=== PATIENT | female | born 1965 | race African-American/Black ===

== ENCOUNTER 2017-01-25 08:09 | Emergency (ER) | payer MEDICAID ==
[~2017-01-25] VITALS: Ht 167.6 cm; Wt 68.2 kg
[~2017-01-25 08:09] MED LIST: ACET-48 PO; BUPR75 PO; CARB200T6 PO; DIVA500T35 PO; IBUP-2077 PO; MECL-111 PO
[2017-01-25 08:48] LABS: BASOPHILS # (AUTO) 0.04 K/uL (0.00-0.20); BASOPHILS % (AUTO) 0.6 % (0.0-2.0); EOSINOPHILS % (AUTO) 8.67 % (1.0-6.0); HEMATOCRIT 38.6 % (36-46); LYMPHOCYTES # (AUTO) 2.3 K/uL (1.0-4.8); LYMPHOCYTES % (AUTO) 33.3 % (22.0-44.0); MEAN CORPUSCULAR HEMOGLOBIN 34.7 pg (26.0-34.0); MEAN CORPUSCULAR HGB CONC 33.6 G/dL (31.0-37.0); MEAN CORPUSCULAR VOLUME 103 fL (80-100); MONOCYTES # (AUTO) 0.6 K/uL (0.1-1.0); MONOCYTES % (AUTO) 8.2 % (2.0-9.0); NEUTROPHILS # (AUTO) 3.4 K/uL (1.8-7.7); NEUTROPHILS % (AUTO) 49.2 % (40.0-70.0); PLATELET COUNT (AUTO) 117 K/uL (150-450); RED BLOOD CELL COUNT(AUTO) 3.74 MIL/uL (4.00-5.20); RED CELL DISTRIBUTION WIDTH 15.8 % (11.5-14.5)
[2017-01-25 08:49] LABS: APPEARANCE,URINE CLOUDY (CLEAR); GLUCOSE, URINE (UA) NEGATIVE (NEGATIVE); KETONES,URINE NEGATIVE (NEGATIVE); LEUKOCYTE ESTERASE ,URINE LARGE (NEGATIVE); OCCULT BLOOD,URINE TRACE (NEGATIVE); PH,URINE 6.5 (5.0-8.0); PROTEIN,URINE NEGATIVE (NEGATIVE)
[2017-01-25 08:56] LABS: ANION GAP 5 mmol/L (8-16); CALCIUM, TOTAL 9.2 mg/dL (8.8-10.5); CARBON DIOXIDE 29 mmol/L (22-29); CHLORIDE 104 mmol/L (98-107); CREATININE 1.04 mg/dL (0.60-1.30); GLOMERULAR FILTR. RATE CALC > 60 mL/min (>60); POTASSIUM 4.8 mmol/L (3.5-5.1); SODIUM SERUM 138 mmol/L (136-145); UREA NITROGEN, BLOOD 19 mg/dL (7-18)
[2017-01-25 09:03] LABS: ALANINE AMINOTRANSFERASE 13 U/L (12-78); ALBUMIN 3.1 g/dL (3.4-5.0); ASPARTATE AMINOTRANSFERASE 14 U/L (15-37); BILIRUBIN,TOTAL 0.4 mg/dL (0.1-1.0); TOTAL PROTEIN, SERUM 7.4 g/dL (6.4-8.2); VALPROIC ACID 133 mcg/mL (50-100)
[2017-01-25 09:13] LABS: WBC,URINE 26-50 /HPF (0-5)
[2017-01-25 09:14] LABS: SQUAMOUS EPITHELIAL CELL,UR Moderate /LPF (None Seen)
[2017-01-25 10:03] LABS: RBC MORPHOLOGY COMMENT ABNORMAL RBC MORPH
[2017-01-25 12:53] VITALS: BP 115/72
== END 2017-01-25 12:55 | disposition home or self-care (01) ==
LOC: EMS 08:11 → MERGE 08:11 → EMS 12:55
DX: F20.9 Schizophrenia, unspecified (principal); N39.0 Urinary tract infection, site not specified; F22 Delusional disorders; F32.9 Major depressive disorder, single episode, unspecified; F41.9 Anxiety disorder, unspecified; Z79.82 Long term (current) use of aspirin
CPT/HCPCS: 36415; 80053; 80164; 80307; 81001; 85025; 87077; 87086; 87186; 99284; G0480

== ENCOUNTER 2017-03-02 11:49 | Inpatient (IN) | payer MEDICAID ==
[~2017-03-02] VITALS: Ht 167.6 cm; Wt 61.7 kg
[2017-03-02 13:33] LABS: BASOPHILS # (AUTO) 0.02 K/uL (0.00-0.20); BASOPHILS % (AUTO) 0.3 % (0.0-2.0); EOSINOPHILS # (AUTO) 0.27 K/uL (0.00-0.70); EOSINOPHILS % (AUTO) 3.74 % (1.0-6.0); HEMATOCRIT 37.6 % (36-46); HEMOGLOBIN 12.8 g/dL (12.0-16.0); LYMPHOCYTES # (AUTO) 1.6 K/uL (1.0-4.8); LYMPHOCYTES % (AUTO) 22.9 % (22.0-44.0); MEAN CORPUSCULAR HEMOGLOBIN 34.3 pg (26.0-34.0); MEAN CORPUSCULAR HGB CONC 34.1 G/dL (31.0-37.0); MEAN CORPUSCULAR VOLUME 101 fL (80-100); MONOCYTES # (AUTO) 0.6 K/uL (0.1-1.0); MONOCYTES % (AUTO) 8.9 % (2.0-9.0); NEUTROPHILS # (AUTO) 4.6 K/uL (1.8-7.7); NEUTROPHILS % (AUTO) 64.2 % (40.0-70.0); PLATELET COUNT (AUTO) 119 K/uL (150-450); RED BLOOD CELL COUNT(AUTO) 3.74 MIL/uL (4.00-5.20); RED CELL DISTRIBUTION WIDTH 14.7 % (11.5-14.5)
[2017-03-02 13:48] LABS: ANION GAP 8 mmol/L (8-16); CALCIUM, TOTAL 9.2 mg/dL (8.8-10.5); CARBON DIOXIDE 29 mmol/L (22-29); CHLORIDE 103 mmol/L (98-107); CREATININE 0.97 mg/dL (0.60-1.30); GLOMERULAR FILTR. RATE CALC > 60 mL/min (>60); GLUCOSE,RANDOM 77 mg/dL (70-110); POTASSIUM 3.8 mmol/L (3.5-5.1); SODIUM SERUM 140 mmol/L (136-145); UREA NITROGEN, BLOOD 19 mg/dL (7-18)
[2017-03-02 13:54] LABS: ALANINE AMINOTRANSFERASE 15 U/L (12-78); ALBUMIN 3.2 g/dL (3.4-5.0); ALKALINE PHOSPHATASE 61 U/L (46-116); ASPARTATE AMINOTRANSFERASE 18 U/L (15-37); BILIRUBIN,TOTAL 0.4 mg/dL (0.1-1.0); TOTAL PROTEIN, SERUM 7.7 g/dL (6.4-8.2)
[2017-03-02 14:26] LABS: AMPHET/METH SCREEN,URINE NEGATIVE (NEGATIVE); BARBITURATE SCREEN, URINE NEGATIVE (NEGATIVE); BENZODIAZEPINES SCREEN,URINE NEGATIVE (NEGATIVE); CANNABINOID SCREEN,URINE NEGATIVE (NEGATIVE); COCAINE SCREEN,URINE NEGATIVE (NEGATIVE); METHADONE SCREEN, URINE NEGATIVE (NEGATIVE); OPIATE SCREEN,URINE NEGATIVE (NEGATIVE)
[2017-03-02 14:29] LABS: PHENCYCLIDINE SCREEN,URINE NEGATIVE (NEGATIVE)
[2017-03-02 16:13] LABS: APPEARANCE,URINE TURBID (CLEAR); BILIRUBIN,URINE NEGATIVE (NEGATIVE); GLUCOSE, URINE (UA) NEGATIVE (NEGATIVE); KETONES,URINE 15 mg/dL (NEGATIVE); LEUKOCYTE ESTERASE ,URINE LARGE (NEGATIVE); NITRATE,URINE POSITIVE (NEGATIVE); OCCULT BLOOD,URINE SMALL (NEGATIVE); PROTEIN,URINE POS 1+ (NEGATIVE)
[2017-03-02 16:21] LABS: BACTERIA,URINE Moderate /HPF (None Seen); RBC,URINE 0-2 /HPF (0-2); SQUAMOUS EPITHELIAL CELL,UR Few /LPF (None Seen); WBC,URINE 51-100 /HPF (0-5)
[2017-03-02] MEDS ORDERED: LORazepam 2 MG TABLET PO PRN (17:00)
[2017-03-02] MEDS ORDERED: HALOPERIDOL 5 MG TABLET PO PRN (17:00)
[2017-03-02 18:16] LABS: CHOL/HDL RATIO 2.4 (3.9-5.7); CHOLESTEROL 182 mg/dL (131-200); FREE T4 (FREE THYROXINE) 1.86 ng/dL (0.76-1.46); HDL CHOLESTEROL 75 mg/dL (40-60); LDL CHOL (CALC.) 90 mg/dL (0-130); THYROID STIMULATING HORMONE 4.69 uIU/mL (0.36-3.74); TRIGLYCERIDES 83 mg/dL (15-150)
[2017-03-02] MEDS ORDERED: CIPROFLOXACIN HCL 250 MG TABLET PO ONE (19:45)
[2017-03-02] MEDS ORDERED: CIPROFLOXACIN HCL 500 MG TABLET PO ONE (19:45)
[2017-03-02 20:17] VITALS: BP 129/94
[2017-03-02] MEDS: DIVALPROEX SODIUM 500 MG DR TABLET PO SCH (23:01)
[2017-03-02] MEDS: CarBAMazepine 200 MG TABLET PO SCH (23:01)
[2017-03-03] MEDS: IBUPROFEN 800 MG TABLET PO SCH ×3 (06:41→17:18)
[2017-03-03] MEDS: MECLIZINE HCL 25 MG TABLET PO SCH ×2 (09:23→17:19)
[2017-03-03] MEDS: CarBAMazepine 200 MG TABLET PO SCH ×4 (09:23→20:45)
[2017-03-03] MEDS: DIVALPROEX SODIUM 500 MG DR TABLET PO SCH ×4 (09:23→20:45)
[2017-03-03] MEDS: ACETAMINOPHEN 500 MG TABLET PO SCH (09:24)
[2017-03-03] MEDS: CIPROFLOXACIN HCL 500 MG TABLET PO SCH ×2 (09:26→17:19)
[2017-03-03 11:16] VITALS: BP 119/70
[2017-03-03 19:02] VITALS: BP 117/69
[2017-03-04] MEDS: IBUPROFEN 800 MG TABLET PO SCH ×3 (06:36→17:39)
[2017-03-04] MEDS: ACETAMINOPHEN 500 MG TABLET PO SCH ×2 (09:00→09:52)
[2017-03-04 09:45] VITALS: BP 114/54
[2017-03-04] MEDS: CIPROFLOXACIN HCL 500 MG TABLET PO SCH ×2 (09:51→17:39)
[2017-03-04] MEDS: CarBAMazepine 200 MG TABLET PO SCH ×4 (09:51→21:42)
[2017-03-04] MEDS: MECLIZINE HCL 25 MG TABLET PO SCH ×2 (09:51→17:38)
[2017-03-04] MEDS: DIVALPROEX SODIUM 500 MG DR TABLET PO SCH ×4 (09:53→21:42)
[2017-03-04 18:37] VITALS: BP 126/68
[2017-03-04] MEDS: ONDANSETRON HCL 4 MG TABLET PO PRN (19:01)
[2017-03-05] MEDS ORDERED: IBUPROFEN 800 MG TABLET PO PRN (00:45)
[2017-03-05] MEDS ORDERED: ACETAMINOPHEN 325 MG TABLET PO PRN (00:45)
[2017-03-05 06:27] VITALS: BP 115/76
[2017-03-05] MEDS: DIVALPROEX SODIUM 500 MG DR TABLET PO SCH ×4 (10:05→22:16)
[2017-03-05] MEDS: CarBAMazepine 200 MG TABLET PO SCH ×4 (10:05→22:16)
[2017-03-05] MEDS: MECLIZINE HCL 25 MG TABLET PO SCH ×2 (10:05→16:32)
[2017-03-05] MEDS: CIPROFLOXACIN HCL 500 MG TABLET PO SCH ×2 (10:05→17:05)
[2017-03-05 16:23] VITALS: BP 114/78
[2017-03-05] MEDS: ONDANSETRON HCL 4 MG TABLET PO PRN (19:52)
[2017-03-06 05:30] VITALS: BP 114/78
[2017-03-06 08:00] VITALS: BP 120/74
[2017-03-06] MEDS: MECLIZINE HCL 25 MG TABLET PO SCH ×2 (09:41→18:18)
[2017-03-06] MEDS: CarBAMazepine 200 MG TABLET PO SCH ×4 (09:41→20:43)
[2017-03-06] MEDS: CIPROFLOXACIN HCL 500 MG TABLET PO SCH ×2 (09:41→18:18)
[2017-03-06] MEDS: DIVALPROEX SODIUM 500 MG DR TABLET PO SCH ×4 (09:41→20:43)
[2017-03-06] MEDS: ONDANSETRON HCL 4 MG TABLET PO PRN (12:08)
[2017-03-06] MEDS ORDERED: DOCUSATE SODIUM 100 MG CAPSULE PO PRN (15:15)
[2017-03-06] MEDS ORDERED: MAGNESIUM HYDROXIDE SUSPENSION 30 ML UDCUP PO PRN (15:15)
[2017-03-06 16:31] VITALS: BP 124/78
[2017-03-06] MEDS: LevETIRAcetam 500 MG TABLET PO SCH (18:18)
[2017-03-07] MEDS: CarBAMazepine 200 MG TABLET PO SCH ×4 (08:46→20:55)
[2017-03-07] MEDS: DIVALPROEX SODIUM 500 MG DR TABLET PO SCH ×2 (08:46→17:04)
[2017-03-07] MEDS: MECLIZINE HCL 25 MG TABLET PO SCH ×2 (08:46→17:03)
[2017-03-07] MEDS: CIPROFLOXACIN HCL 500 MG TABLET PO SCH ×2 (08:46→17:03)
[2017-03-07] MEDS: LevETIRAcetam 500 MG TABLET PO SCH ×2 (08:47→17:03)
[2017-03-07 11:45] VITALS: BP 116/72
[2017-03-07] MEDS: FLUoxetine HCL 20 MG CAPSULE PO SCH (13:11)
[2017-03-07 18:35] VITALS: BP 124/75
[2017-03-08 08:02] LABS: CARBAMAZEPINE (TEGRETOL) 18.4 mcg/mL (4.0-12.0)
[2017-03-08] MEDS: DIVALPROEX SODIUM 500 MG DR TABLET PO SCH ×2 (08:10→16:34)
[2017-03-08] MEDS: LevETIRAcetam 500 MG TABLET PO SCH ×2 (08:10→16:34)
[2017-03-08] MEDS: FLUoxetine HCL 20 MG CAPSULE PO SCH (08:10)
[2017-03-08] MEDS: CIPROFLOXACIN HCL 500 MG TABLET PO SCH ×2 (08:10→16:34)
[2017-03-08] MEDS: CarBAMazepine 200 MG TABLET PO SCH (08:10)
[2017-03-08] MEDS: MECLIZINE HCL 25 MG TABLET PO SCH ×2 (08:10→16:34)
[2017-03-08 14:51] VITALS: BP 126/76
[2017-03-08 19:45] VITALS: BP 124/60
[2017-03-09 08:42] VITALS: BP 121/63
[2017-03-09] MEDS: MECLIZINE HCL 25 MG TABLET PO SCH ×2 (09:51→16:39)
[2017-03-09] MEDS: LevETIRAcetam 500 MG TABLET PO SCH ×2 (09:51→16:38)
[2017-03-09] MEDS: FLUoxetine HCL 20 MG CAPSULE PO SCH (09:51)
[2017-03-09] MEDS: DIVALPROEX SODIUM 500 MG DR TABLET PO SCH ×2 (09:51→16:38)
[2017-03-09] MEDS: CIPROFLOXACIN HCL 500 MG TABLET PO SCH ×2 (09:51→16:38)
[2017-03-09] MEDS: CarBAMazepine 200 MG TABLET PO SCH ×2 (14:07→16:38)
[2017-03-09 16:27] VITALS: BP 122/70
[2017-03-10 04:14] VITALS: BP 125/79
[2017-03-10] MEDS: DIVALPROEX SODIUM 500 MG DR TABLET PO SCH ×2 (09:27→17:55)
[2017-03-10] MEDS: FLUoxetine HCL 20 MG CAPSULE PO SCH (09:28)
[2017-03-10] MEDS: MECLIZINE HCL 25 MG TABLET PO SCH ×2 (09:28→17:55)
[2017-03-10] MEDS: LevETIRAcetam 500 MG TABLET PO SCH ×2 (09:29→17:55)
[2017-03-10] MEDS: CarBAMazepine 200 MG TABLET PO SCH ×3 (09:29→17:55)
[2017-03-10 11:24] VITALS: BP 109/70
[2017-03-10 16:04] VITALS: BP 126/74
[2017-03-11 01:30] VITALS: BP 122/78
[2017-03-11] MEDS: ZOLPIDEM TARTRATE 10 MG TABLET PO PRN (01:41)
[2017-03-11] MEDS: MECLIZINE HCL 25 MG TABLET PO SCH ×2 (08:23→18:05)
[2017-03-11] MEDS: DIVALPROEX SODIUM 500 MG DR TABLET PO SCH ×2 (08:24→18:05)
[2017-03-11] MEDS: LevETIRAcetam 500 MG TABLET PO SCH ×2 (08:24→18:05)
[2017-03-11] MEDS: CarBAMazepine 200 MG TABLET PO SCH ×3 (08:25→18:06)
[2017-03-11] MEDS: FLUoxetine HCL 20 MG CAPSULE PO SCH (08:25)
[2017-03-11 11:09] VITALS: BP 135/78
[2017-03-11 16:05] VITALS: BP 123/77
[2017-03-12] MEDS: DIVALPROEX SODIUM 500 MG DR TABLET PO SCH ×2 (09:16→17:53)
[2017-03-12] MEDS: LevETIRAcetam 500 MG TABLET PO SCH ×2 (09:16→17:55)
[2017-03-12] MEDS: FLUoxetine HCL 20 MG CAPSULE PO SCH (09:16)
[2017-03-12] MEDS: CarBAMazepine 200 MG TABLET PO SCH ×3 (09:16→17:55)
[2017-03-12] MEDS: MECLIZINE HCL 25 MG TABLET PO SCH ×2 (09:16→17:53)
[2017-03-12 09:56] VITALS: BP 113/75
[2017-03-12 16:12] VITALS: BP 122/76
[2017-03-12] MEDS: ZOLPIDEM TARTRATE 10 MG TABLET PO PRN (20:17)
[2017-03-13 08:59] VITALS: BP 124/62
[2017-03-13] MEDS: FLUoxetine HCL 20 MG CAPSULE PO SCH (10:01)
[2017-03-13] MEDS: LevETIRAcetam 500 MG TABLET PO SCH ×2 (10:01→18:09)
[2017-03-13] MEDS: CarBAMazepine 200 MG TABLET PO SCH ×3 (10:02→18:09)
[2017-03-13] MEDS: DIVALPROEX SODIUM 500 MG DR TABLET PO SCH ×2 (10:02→18:09)
[2017-03-13] MEDS: MECLIZINE HCL 25 MG TABLET PO SCH ×2 (10:02→18:09)
[2017-03-13 16:15] VITALS: BP 135/78
[2017-03-14] MEDS: ZOLPIDEM TARTRATE 10 MG TABLET PO PRN (01:04)
[2017-03-14] MEDS: LevETIRAcetam 500 MG TABLET PO SCH (08:22)
[2017-03-14] MEDS: FLUoxetine HCL 20 MG CAPSULE PO SCH (08:22)
[2017-03-14] MEDS: DIVALPROEX SODIUM 500 MG DR TABLET PO SCH (08:22)
[2017-03-14] MEDS: CarBAMazepine 200 MG TABLET PO SCH ×2 (08:22→12:52)
[2017-03-14] MEDS: MECLIZINE HCL 25 MG TABLET PO SCH (08:22)
[2017-03-14 09:19] VITALS: BP 125/75
[2017-03-14] MEDS ORDERED: FLUO-191 PO (11:33)
[2017-03-14] MEDS ORDERED: LEVE500T53 PO (11:35)
== END 2017-03-14 15:01 | disposition home or self-care (01) | DRG 750 ==
LOC: EMS 11:51 → 3EI 17:58
DX: F25.0 Schizoaffective disorder, bipolar type (principal); F79 Unspecified intellectual disabilities; R45.851 Suicidal ideations; N39.0 Urinary tract infection, site not specified; G40.909 Epilepsy, unspecified, not intractable, without status epilepticus; R32 Unspecified urinary incontinence; R62.50 Unspecified lack of expected normal physiological development in childhood; Z79.899 Other long term (current) drug therapy
CPT/HCPCS: 70450; 84439; 84443; 87086; 97110; 97116; 97161; 97530; 99285; G0480; Q0162

== ENCOUNTER 2019-03-21 19:11 | Inpatient (IN) | payer MEDICAID ==
[~2019-03-21] VITALS: Ht 152.4 cm; Wt 65.8 kg
[~2019-03-21 19:11] MED LIST changes: -ACET-48 PO; -BUPR75 PO; +DIVA-78 PO; -DIVA500T35 PO; +FLUO-191 PO; -IBUP-2077 PO; +LEVE500T53 PO; -MECL-111 PO; +MECL-134 PO
[2019-03-21] MEDS ORDERED: ASPI-629 PO (19:44)
[2019-03-21 19:59] LABS: AMPHET/METH SCREEN,URINE NEGATIVE (NEGATIVE); BARBITURATE SCREEN, URINE NEGATIVE (NEGATIVE); BENZODIAZEPINES SCREEN,URINE NEGATIVE (NEGATIVE); CANNABINOID SCREEN,URINE NEGATIVE (NEGATIVE); COCAINE SCREEN,URINE NEGATIVE (NEGATIVE); METHADONE SCREEN, URINE NEGATIVE (NEGATIVE); OPIATE SCREEN,URINE NEGATIVE (NEGATIVE)
[2019-03-21 20:00] LABS: PHENCYCLIDINE SCREEN,URINE NEGATIVE (NEGATIVE)
[2019-03-21 20:17] LABS: BASOPHILS % (AUTO) 0.7 % (0.0-2.0); EOSINOPHILS % (AUTO) 0.6 % (1.0-6.0); HEMATOCRIT 41.9 % (36-46); LYMPHOCYTES # (AUTO) 2.7 K/uL (1.0-4.8); LYMPHOCYTES % (AUTO) 34.3 % (22.0-44.0); MEAN CORPUSCULAR HEMOGLOBIN 30.3 pg (26.0-34.0); MEAN CORPUSCULAR HGB CONC 33.5 G/dL (31.0-37.0); MEAN CORPUSCULAR VOLUME 90 fL (80-100); MONOCYTES # (AUTO) 0.9 K/uL (0.1-1.0); NEUTROPHILS # (AUTO) 4.3 K/uL (1.8-7.7); NEUTROPHILS % (AUTO) 53.4 % (40.0-70.0); PLATELET COUNT (AUTO) 249 K/uL (150-450); RED BLOOD CELL COUNT(AUTO) 4.64 MIL/uL (4.00-5.20); RED CELL DISTRIBUTION WIDTH 15.7 % (11.5-14.5)
[2019-03-21 20:29] LABS: ANION GAP 9 mmol/L (8-16); CALCIUM, TOTAL 9.6 mg/dL (8.8-10.5); CARBON DIOXIDE 27 mmol/L (22-29); CHLORIDE 104 mmol/L (98-107); GLOMERULAR FILTR. RATE CALC > 60 mL/min (>60); GLUCOSE,RANDOM 84 mg/dL (70-110); POTASSIUM 4.9 mmol/L (3.5-5.1); SODIUM SERUM 140 mmol/L (136-145); UREA NITROGEN, BLOOD 20 mg/dL (7-18)
[2019-03-21 20:34] LABS: ALANINE AMINOTRANSFERASE 37 U/L (12-78); ALBUMIN 3.7 g/dL (3.4-5.0); ALKALINE PHOSPHATASE 86 U/L (46-116); ASPARTATE AMINOTRANSFERASE 33 U/L (15-37); BILIRUBIN,TOTAL 0.3 mg/dL (0.1-1.0); TOTAL PROTEIN, SERUM 8.7 g/dL (6.4-8.2); VALPROIC ACID 72 mcg/mL (50-100)
[2019-03-22] MEDS ORDERED: HALOPERIDOL 5 MG TABLET PO PRN (00:15)
[2019-03-22] MEDS ORDERED: ZOLPIDEM TARTRATE 10 MG TABLET PO PRN (00:15)
[2019-03-22] MEDS ORDERED: LORazepam 2 MG TABLET PO PRN (00:15)
[2019-03-22 04:29] VITALS: BP 110/77
[2019-03-22] MEDS ORDERED: PNEUMOCOCCAL VACCINE POLYVALENT 0.5 ML VIAL [PPSV23] IM ONE (06:00)
[2019-03-22 08:16] VITALS: BP 107/61
[2019-03-22] MEDS: FLUoxetine HCL 20 MG CAPSULE PO SCH (13:21)
[2019-03-22] MEDS: DIVALPROEX SODIUM 500 MG ER TABLET PO SCH (16:47)
[2019-03-22] MEDS: LevETIRAcetam 500 MG TABLET PO SCH (16:47)
[2019-03-22 17:49] VITALS: BP 108/68
[2019-03-23 06:13] VITALS: BP 106/62
[2019-03-23 07:36] LABS: CHOL/HDL RATIO 2.9 (3.9-5.7)
[2019-03-23 08:05] VITALS: BP 106/67
[2019-03-23] MEDS ORDERED: ACETAMINOPHEN 325 MG TABLET PO PRN (08:15)
[2019-03-23] MEDS: IBUPROFEN 600 MG TABLET PO PRN ×2 (09:14→21:24)
[2019-03-23] MEDS: DIVALPROEX SODIUM 500 MG ER TABLET PO SCH ×2 (09:14→16:43)
[2019-03-23] MEDS: LevETIRAcetam 500 MG TABLET PO SCH ×2 (09:14→16:43)
[2019-03-23] MEDS: FLUoxetine HCL 20 MG CAPSULE PO SCH (09:15)
[2019-03-23 17:24] VITALS: BP 118/64
[2019-03-24 06:12] VITALS: BP 100/63
[2019-03-24 08:08] VITALS: BP 104/56
[2019-03-24] MEDS: LevETIRAcetam 500 MG TABLET PO SCH ×2 (09:08→17:04)
[2019-03-24] MEDS: DIVALPROEX SODIUM 500 MG ER TABLET PO SCH ×2 (09:08→17:04)
[2019-03-24] MEDS: FLUoxetine HCL 20 MG CAPSULE PO SCH (09:08)
[2019-03-24 10:12] VITALS: BP 108/70
[2019-03-24] MEDS: IBUPROFEN 600 MG TABLET PO PRN (10:12)
[2019-03-24] MEDS ORDERED: DIVA500T52 PO (17:15)
[2019-03-24] MEDS ORDERED: LEVE500T53 PO (17:15)
[2019-03-24 17:57] VITALS: BP 102/63
[2019-03-25 05:11] VITALS: BP 104/62
[2019-03-25] MEDS: LevETIRAcetam 500 MG TABLET PO SCH ×2 (08:21→16:13)
[2019-03-25] MEDS: FLUoxetine HCL 20 MG CAPSULE PO SCH (08:21)
[2019-03-25] MEDS: DIVALPROEX SODIUM 500 MG ER TABLET PO SCH ×2 (08:21→16:13)
[2019-03-25 08:28] VITALS: BP 100/56
[2019-03-25 16:19] VITALS: BP 100/67
== END 2019-03-25 18:30 | disposition home or self-care (01) | DRG 751 ==
LOC: EMS 19:13 → B3A 03-22 01:00
PROVIDERS: ADMIT Psychiatry & Neurology Psychiatry; ATTEND Psychiatry & Neurology Psychiatry
DX: F33.2 Major depressive disorder, recurrent severe without psychotic features (principal); R45.850 Homicidal ideations; G40.909 Epilepsy, unspecified, not intractable, without status epilepticus; Z91.14 Patient's other noncompliance with medication regimen; Z91.5 Personal history of self-harm; Z79.899 Other long term (current) drug therapy; Z28.21 Immunization not carried out because of patient refusal
CPT/HCPCS: 71100; 90732; G0480